=== PATIENT | male | born 1980 | race Caucasian/White ===

== ENCOUNTER 2019-11-01 16:20 | Emergency (ER) | payer MEDICARE, MEDICAID ==
[~2019-11-01] VITALS: Ht 165.1 cm; Wt 155.0 kg
[~2019-11-01 16:20] MED LIST: ALBU18HF2 INH; ALBU8.5H8 IH; ALBU8HFA PO; AZIT250T PO; BAC10T PO; DICL50TA8 PO; DOXY-1 PO; MONT10TA21 PO; PRED10TA PO; [UNRECOGNIZED DRUG - CODE] PO
[2019-11-01 16:40] VITALS: BP 122/76
[2019-11-01] MEDS ORDERED: ipratropium/albuterol 3ml nebule NEB STA (17:09)
[2019-11-01] MEDS ORDERED: predniSONE 20 mg tablet PO ONE (17:10)
[2019-11-01] MEDS ORDERED: LORA10TA61 PO (17:19)
[2019-11-01] MEDS ORDERED: BECL7.3A INH (17:19)
[2019-11-01] MEDS ORDERED: PRED10TA23 PO (17:19)
[2019-11-01] MEDS ORDERED: IPRA3AMP31 IH (17:19)
== END 2019-11-01 18:15 | disposition home or self-care (01) ==
LOC: ER 16:20
DX: J45.901 Unspecified asthma with (acute) exacerbation (principal); G20 Parkinson's disease; Z86.69 Personal history of other diseases of the nervous system and sense organs; Z98.890 Other specified postprocedural states; Z88.0 Allergy status to penicillin; Z88.2 Allergy status to sulfonamides; Z88.8 Allergy status to other drugs, medicaments and biological substances; Z79.2 Long term (current) use of antibiotics; Z79.899 Other long term (current) drug therapy
CPT/HCPCS: 94640; 99283; J7512; 94760

== ENCOUNTER 2020-07-26 15:29 | Emergency (ER) | payer MEDICARE, MEDICAID ==
[~2020-07-26] VITALS: Ht 165.1 cm; Wt 65.0 kg
[~2020-07-26 15:29] MED LIST changes: +BECL7.3A INH; +IPRA3AMP31 IH; +LORA10TA61 PO
[2020-07-26 15:49] VITALS: BP 124/89
[2020-07-27] MEDS ORDERED: CLIN-97 PO (08:33)
== END 2020-07-26 16:26 | disposition home or self-care (01) ==
LOC: ER 15:29
DX: F15.10 Other stimulant abuse, uncomplicated (principal); M79.601 Pain in right arm; J45.909 Unspecified asthma, uncomplicated; F15.90 Other stimulant use, unspecified, uncomplicated; Z86.69 Personal history of other diseases of the nervous system and sense organs; Z98.890 Other specified postprocedural states; Z72.89 Other problems related to lifestyle; Z88.0 Allergy status to penicillin; Z88.2 Allergy status to sulfonamides; Z88.8 Allergy status to other drugs, medicaments and biological substances; Z79.2 Long term (current) use of antibiotics; Z79.899 Other long term (current) drug therapy
CPT/HCPCS: 99281

== ENCOUNTER 2020-07-27 07:16 | Emergency (ER) | payer MEDICARE, MEDICAID ==
[~2020-07-27] VITALS: Ht 165.1 cm; Wt 62.1 kg
[2020-07-27 07:20] VITALS: BP 156/102
[2020-07-27] MEDS ORDERED: CLIN-97 PO (08:33)
[2020-07-27] MEDS ORDERED: ibuprofen tablet 400 MG TABLET PO ONE (08:45)
--- NOTE | 2020-07-27 09:06 | NUR ---
PT LEFT ER WITHOUT TAKING HIS MOTRIN.
== END 2020-07-27 09:08 | disposition home or self-care (01) ==
LOC: ER 07:16
DX: M79.641 Pain in right hand (principal); G20 Parkinson's disease; J45.909 Unspecified asthma, uncomplicated; F10.10 Alcohol abuse, uncomplicated; F15.90 Other stimulant use, unspecified, uncomplicated; Z86.69 Personal history of other diseases of the nervous system and sense organs; Z98.890 Other specified postprocedural states; Z88.0 Allergy status to penicillin; Z88.2 Allergy status to sulfonamides; Z79.899 Other long term (current) drug therapy; Z79.2 Long term (current) use of antibiotics
CPT/HCPCS: 99283

== ENCOUNTER 2020-10-22 00:44 | Emergency (ER) | payer MEDICARE, MEDICAID ==
[~2020-10-22] VITALS: Ht 165.1 cm; Wt 70.0 kg
[~2020-10-22 00:44] MED LIST changes: +ALBU17AE26 PO; -ALBU18HF2 INH; -ALBU8.5H8 IH; -ALBU8HFA PO; -AZIT250T PO; -BAC10T PO; -BECL7.3A INH; +BUDE10.2 PO; -DICL50TA8 PO; +DIVA500T9 PO; -DOXY-1 PO; +FOLI0.4T2 PO; +IBUP-1594 PO; -IPRA3AMP31 IH; +LACT1CAP26 PO; +LEVE10006 PO; +LINE600T14 PO; -LORA10TA61 PO; +MULT-25 PO; +OMEP-50 PO; -PRED10TA PO; +THIA50TA10 PO; +TRAZ-251 PO; -[UNRECOGNIZED DRUG - CODE] PO
[2020-10-22 00:46] VITALS: BP 139/100
[2020-10-22 01:41] LABS: ALBUMIN 3.4 G/DL (3.4-5.0); ANION GAP 10 (8-16); BASOPHILS # (AUTO) 0.1 X10'3 (0-0.2); BASOPHILS % (AUTO) 0.8 % (0-1); BLOOD UREA NITROGEN 17 MG/DL (7-18); BUN/CREATININE RATIO 23.3 (5.4-32.0); CALCIUM 9.1 MG/DL (8.5-10.1); CHLORIDE 103 MMOL/L (99-107); CREATININE 0.73 MG/DL (0.60-1.10); EOSINOPHILS # (AUTO) 0.4 X10'3 (0-0.9); EOSINOPHILS % (AUTO) 3.4 % (0-6); GLUCOSE 130 MG/DL (70-104); HEMATOCRIT 38.9 % (42.0-52.0); HEMOGLOBIN 13.2 g/dl (14.0-17.9); LYMPHOCYTES # (AUTO) 2.4 X10'3 (1.1-4.8); LYMPHOCYTES % (AUTO) 19.8 % (21-51); MEAN CORPUSCULAR HEMOGLOBIN 30.8 PG (27.0-31.0); MEAN CORPUSCULAR HGB CONC 33.8 g/dL (33.0-36.5); MEAN CORPUSCULAR VOLUME 91.3 FL (78-98); MEAN PLATELET VOLUME 7.5 FL (7.4-10.4); MONOCYTES # (AUTO) 1.5 X10'3 (0-0.9); MONOCYTES % (AUTO) 12.4 % (2-12); NEUTROPHILS # (AUTO) 7.8 X10'3 (1.8-7.7); NEUTROPHILS % (AUTO) 63.6 % (42-75); PLATELET COUNT 410 X10'3 (140-440); POTASSIUM 3.6 MMOL/L (3.5-5.1); RED BLOOD COUNT 4.26 X10'6 (4.70-6.10); SODIUM 140 MMOL/L (135-145); TOTAL CARBON DIOXIDE 27.1 MMOL/L (24-32); WHITE BLOOD COUNT 12.3 X10'3 (4.5-11.0); eGFR > 90 ML/MIN
== END 2020-10-22 02:23 | disposition left against medical advice (07) ==
LOC: ER 00:45
DX: M86.8X4 Other osteomyelitis, hand (principal); G20 Parkinson's disease; J45.909 Unspecified asthma, uncomplicated; G89.29 Other chronic pain; F15.90 Other stimulant use, unspecified, uncomplicated; F17.200 Nicotine dependence, unspecified, uncomplicated; Z86.61 Personal history of infections of the central nervous system; Z72.89 Other problems related to lifestyle; Z88.0 Allergy status to penicillin; Z88.2 Allergy status to sulfonamides; Z91.048 Other nonmedicinal substance allergy status; Z79.899 Other long term (current) drug therapy
CPT/HCPCS: 36415; 73140; 80048; 85025; 85651; 99284

== ENCOUNTER 2020-12-01 18:09 | Emergency (ER) | payer MEDICARE, MEDICAID ==
[~2020-12-01] VITALS: Ht 165.1 cm; Wt 68.2 kg
[~2020-12-01 18:09] MED LIST changes: -FOLI0.4T2 PO
[2020-12-01 18:16] VITALS: BP 120/71
[2020-12-01] MEDS ORDERED: triamcinolone acetonide 40mg/ml inj IM ONE (19:45)
[2020-12-01] MEDS ORDERED: PRED20TA PO (19:59)
[2020-12-01] MEDS ORDERED: KEN0.1O TP (19:59)
== END 2020-12-01 20:10 | disposition home or self-care (01) ==
LOC: ER 18:10
DX: L23.7 Allergic contact dermatitis due to plants, except food (principal); H10.9 Unspecified conjunctivitis; J45.909 Unspecified asthma, uncomplicated; G89.29 Other chronic pain; F31.9 Bipolar disorder, unspecified; F15.90 Other stimulant use, unspecified, uncomplicated; Z86.69 Personal history of other diseases of the nervous system and sense organs; Z98.890 Other specified postprocedural states; Z72.89 Other problems related to lifestyle; Z88.0 Allergy status to penicillin; Z88.2 Allergy status to sulfonamides; Z79.899 Other long term (current) drug therapy
CPT/HCPCS: 96372; 99283; J3301

== ENCOUNTER 2021-05-07 16:29 | Emergency (ER) | payer MEDICARE, MEDICAID | END 2021-05-07 18:16 | disposition left against medical advice (07) | LOC: ER 16:29 | DX: R06.02 Shortness of breath (principal); Z53.21 Procedure and treatment not carried out due to patient leaving prior to being seen by health care provider ==

== ENCOUNTER 2021-05-10 04:48 | Emergency (ER) | payer MEDICARE, MEDICAID ==
[~2021-05-10] VITALS: Ht 165.1 cm; Wt 65.9 kg
[2021-05-10 04:59] VITALS: BP 137/92
[2021-05-10] MEDS ORDERED: albuterol 2.5 MG/3 ML nebule NEB ONE ×2 (05:00→07:00)
[2021-05-10] MEDS ORDERED: ipratropium 0.5 MG/2.5ML nebule IH ONE (05:00)
[2021-05-10] MEDS ORDERED: predniSONE 20 mg tablet PO ONE (06:00)
[2021-05-10] MEDS ORDERED: albuterol 2.5 MG/3 ML nebule CONTNEB PRN (06:00)
[2021-05-10] MEDS ORDERED: ALBU18HF2 INH (07:27)
[2021-05-10] MEDS ORDERED: PRED20TA PO (07:27)
== END 2021-05-10 07:47 | disposition home or self-care (01) ==
LOC: ER 04:49
DX: J45.909 Unspecified asthma, uncomplicated (principal); G89.29 Other chronic pain; Z88.0 Allergy status to penicillin; Z88.2 Allergy status to sulfonamides; Z88.8 Allergy status to other drugs, medicaments and biological substances; Z79.899 Other long term (current) drug therapy
CPT/HCPCS: 71045; 94640; 99284; J7512; 94760

== ENCOUNTER 2021-06-19 20:23 | Emergency (ER) | payer MEDICARE, MEDICAID ==
[~2021-06-19] VITALS: Ht 165.1 cm; Wt 70.5 kg
[~2021-06-19 20:23] MED LIST changes: +ALBU18HF2 INH
[2021-06-19 21:35] VITALS: BP 116/85
[2021-06-19] MEDS ORDERED: dexamethasone 4mg tablet PO ONE (22:00)
[2021-06-19] MEDS ORDERED: ipratropium/albuterol 3ml nebule NEB ONE (22:05)
== END 2021-06-19 22:41 | disposition left against medical advice (07) ==
LOC: ER 20:25
DX: J45.909 Unspecified asthma, uncomplicated (principal); Z53.21 Procedure and treatment not carried out due to patient leaving prior to being seen by health care provider

== ENCOUNTER 2021-06-19 22:33 | Emergency (ER) | payer MEDICARE, MEDICAID ==
[~2021-06-19] VITALS: Ht 170.2 cm; Wt 72.7 kg
[2021-06-19 22:48] LABS: BASOPHILS # (AUTO) 0.1 X10'3 (0-0.2); EOSINOPHILS # (AUTO) 0.5 X10'3 (0-0.9); EOSINOPHILS % (AUTO) 4.2 % (0-6); HEMATOCRIT 41.4 % (42.0-52.0); HEMOGLOBIN 13.4 g/dl (14.0-17.9); LYMPHOCYTES # (AUTO) 4.5 X10'3 (1.1-4.8); LYMPHOCYTES % (AUTO) 39.6 % (21-51); MEAN CORPUSCULAR HEMOGLOBIN 27.6 PG (27.0-31.0); MEAN CORPUSCULAR HGB CONC 32.3 g/dL (33.0-36.5); MEAN CORPUSCULAR VOLUME 85.4 FL (78-98); MEAN PLATELET VOLUME 7.3 FL (7.4-10.4); MONOCYTES # (AUTO) 1.1 X10'3 (0-0.9); MONOCYTES % (AUTO) 9.5 % (2-12); NEUTROPHILS # (AUTO) 5.1 X10'3 (1.8-7.7); NEUTROPHILS % (AUTO) 45.7 % (42-75); PLATELET COUNT 311 X10'3 (140-440); RED BLOOD COUNT 4.85 X10'6 (4.70-6.10); RED CELL DISTRIBUTION WIDTH 16.7 % (11.5-14.5); WHITE BLOOD COUNT 11.2 X10'3 (4.5-11.0)
[2021-06-19 22:55] VITALS: BP 148/97
[2021-06-19 23:04] LABS: ALANINE AMINOTRANSFERASE 27 U/L (12-78); ALBUMIN 3.6 G/DL (3.4-5.0); ALBUMIN/GLOBULIN RATIO 0.9 (1.1-1.5); ALKALINE PHOSPHATASE 82 IU/L (46-116); ANION GAP 9 (8-16); ASPARTATE AMINO TRANSFERASE 23 U/L (10-37); BILIRUBIN,TOTAL 0.3 MG/DL (0.1-1.0); BLOOD UREA NITROGEN 15 MG/DL (7-18); BUN/CREATININE RATIO 14.2 (5.4-32.0); CALCIUM 8.1 MG/DL (8.5-10.1); CHLORIDE 104 MMOL/L (99-107); CREATININE 1.06 MG/DL (0.60-1.10); GLUCOSE 209 MG/DL (70-104); POTASSIUM 4.1 MMOL/L (3.5-5.1); SODIUM 142 MMOL/L (135-145); TOTAL PROTEIN 7.7 G/DL (6.4-8.2); eGFR 77 ML/MIN
[2021-06-19 23:16] LABS: CKMB RELATIVE INDEX 1.4 RATIO (0-2.5); CREATINE KINASE 158 U/L (39-308); ETHANOL < 0.010 GM/DL (0.0-0.010)
[2021-06-19 23:47] LABS: HEMOGLOBIN A1C 6.4 % (4.5-6.2)
[2021-06-19] MEDS ORDERED: naloxone 2mg/2ml inj IV STA (23:50)
--- NOTE | 2021-06-20 01:03 | NUR ---
pt seen and d/c by from [facility]. this RN did not evaluate pt. iv removed, pt ambulatory with steady gait. requesting d/c, alert and oriented.
== END 2021-06-20 01:21 | disposition home or self-care (01) ==
LOC: ER 22:33
DX: T40.411A Poisoning by fentanyl or fentanyl analogs, accidental (unintentional), initial encounter (principal); R73.9 Hyperglycemia, unspecified; J45.909 Unspecified asthma, uncomplicated; G89.29 Other chronic pain; F31.9 Bipolar disorder, unspecified; F15.90 Other stimulant use, unspecified, uncomplicated; Z86.69 Personal history of other diseases of the nervous system and sense organs; Z98.890 Other specified postprocedural states; Z72.89 Other problems related to lifestyle; Z88.0 Allergy status to penicillin; Z88.2 Allergy status to sulfonamides; Z79.899 Other long term (current) drug therapy; Y92.89 Other specified places as the place of occurrence of the external cause
CPT/HCPCS: 36415; 80053; 80320; 82550; 82553; 83036; 85025; 93005; 99284

== ENCOUNTER 2021-07-18 09:24 | Emergency (ER) | payer MEDICARE, MEDICAID ==
[~2021-07-18] VITALS: Ht 165.1 cm; Wt 65.9 kg
[2021-07-18 09:36] VITALS: BP 114/81
[2021-07-18] MEDS ORDERED: TETanus/Pertussis (Acell)/Diphther VAC/PF (Tdap-Adult) 0.5ml syringe IMVAC ONE (09:40)
[2021-07-18] MEDS ORDERED: LIDOcaine 1% W/epiNEPHrine 1:200,000 10ml vial IJ ONE (09:40)
[2021-07-18] MEDS ORDERED: DOXY100C76 PO (10:03)
[2021-07-18] MEDS ORDERED: CEPH250T PO (10:03)
== END 2021-07-18 10:46 | disposition home or self-care (01) ==
LOC: ER 09:25
DX: L02.512 Cutaneous abscess of left hand (principal); J45.909 Unspecified asthma, uncomplicated; M54.9 Dorsalgia, unspecified; G89.29 Other chronic pain; F31.9 Bipolar disorder, unspecified; Z88.0 Allergy status to penicillin; Z79.899 Other long term (current) drug therapy
CPT/HCPCS: 10060; 90715; 99283